=== PATIENT | male | born 1930 | race Caucasian/White ===

== ENCOUNTER 2017-04-24 10:39 | Inpatient (IN) | payer OTHER ==
[~2017-04-24] VITALS: Ht 172.7 cm; Wt 82.2 kg
[2017-04-24 14:46] LABS: BASOPHIL % 0.3 % (0-2)
[2017-04-24 14:47] LABS: PLATELET COUNT 82 x10^3mcL (130-400); RED CELL DISTRIBUTION WIDTH 15.1 % (11.5-14.5)
[2017-04-24 15:02] LABS: CALCIUM 8.4 mg/dL (8.5-10.1); CARBON DIOXIDE 23.3 mmol/L (21-32); CHLORIDE SERUM 101 mmol/L (98-107); CREATININE SERUM 0.9 mg/dL (0.7-1.3); GLUCOSE SERUM 103 mg/dL (74-106); POTASSIUM SERUM 3.8 mmol/L (3.5-5.1); SODIUM SERUM 132 mmol/L (136-145)
[2017-04-24 15:08] LABS: ALKALINE PHOSPHATASE 66 U/L (46-116); ALT/SGPT 33 U/L (16-63); AST/SGOT 37 U/L (15-37); BILIRUBIN TOTAL 1.05 mg/dL (0.20-1.00); TOTAL PROTEIN, SERUM 7.2 g/dL (6.4-8.2)
[2017-04-24 15:10] LABS: ALBUMIN 3.3 g/dL (3.4-5.0)
[2017-04-24] MEDS ORDERED: VERAMYST27.5 MCG/1 (16:44)
[2017-04-24] MEDS ORDERED: ALBUTEROL0.63 MG/3 (16:44)
[2017-04-24 17:33] VITALS: BP 138/77
[2017-04-24 18:02] LABS: AMYLASE 46 U/L (25-115); LIPASE 107 IU/L (73-393)
[2017-04-24 18:05] VITALS: BP 137/67
[2017-04-24 18:10] LABS: FREE T4 1.2 ng/dL (0.76-1.46); FREE THYROXINE INDEX 2.1 ug/dL (1.4-4.5); T4(THYROXINE) 5.7 ug/dL (4.7-13.3)
[2017-04-24 18:16] LABS: CHOLESTEROL/HDL RATIO 1.5
[2017-04-24 18:17] VITALS: BP 137/67
[2017-04-24 18:58] LABS: UA SPECIFIC GRAVITY 1.025 (1.005-1.035); microscopic required? YES; urine erythrocyte TRACE (NEGATIVE)
[2017-04-24 19:49] LABS: T3 TOTAL 0.7 ng/mL
[2017-04-24 21:44] VITALS: BP 127/61
[2017-04-25 05:43] VITALS: BP 142/60
[2017-04-25 07:02] LABS: BASOPHIL % 0 % (0-2); PLATELET COUNT 86 x10^3mcL (130-400)
[2017-04-25 07:13] LABS: BILIRUBIN TOTAL 0.49 mg/dL (0.20-1.00); CALCIUM 8.2 mg/dL (8.5-10.1); CARBON DIOXIDE 22.3 mmol/L (21-32); CHLORIDE SERUM 104 mmol/L (98-107); CREATININE SERUM 0.8 mg/dL (0.7-1.3); GLUCOSE SERUM 159 mg/dL (74-106); MAGNESIUM 2.1 mg/dL (1.8-2.4); PHOSPHOROUS 2.2 mg/dL (2.5-4.9); POTASSIUM SERUM 3.9 mmol/L (3.5-5.1); SODIUM SERUM 134 mmol/L (136-145)
[2017-04-25 09:58] VITALS: BP 124/70
[2017-04-25 12:39] VITALS: BP 145/73
[2017-04-25 17:09] VITALS: BP 144/63
[2017-04-25 20:49] VITALS: BP 132/58
[2017-04-26 06:02] VITALS: BP 148/74
[2017-04-26 07:20] LABS: CARBON DIOXIDE 22.7 mmol/L (21-32); CHLORIDE SERUM 104 mmol/L (98-107); CREATININE SERUM 0.8 mg/dL (0.7-1.3); GLUCOSE SERUM 159 mg/dL (74-106); MAGNESIUM 2.2 mg/dL (1.8-2.4); PHOSPHOROUS 2.4 mg/dL (2.5-4.9); POTASSIUM SERUM 3.7 mmol/L (3.5-5.1); SODIUM SERUM 136 mmol/L (136-145)
[2017-04-26 07:22] LABS: BASOPHIL % 0.9 % (0-2); RED CELL DISTRIBUTION WIDTH 14.2 % (11.5-14.5)
[2017-04-26 07:28] LABS: PLATELET COUNT 94 x10^3mcL (130-400)
[2017-04-26 09:04] VITALS: BP 115/67
[2017-04-26 14:10] VITALS: BP 135/66
[2017-04-26 16:36] VITALS: BP 147/84
[2017-04-26 21:47] VITALS: BP 133/68
[2017-04-27 06:15] VITALS: BP 171/76
[2017-04-27 07:25] LABS: CALCIUM 8.1 mg/dL (8.5-10.1); CARBON DIOXIDE 24.4 mmol/L (21-32); CHLORIDE SERUM 104 mmol/L (98-107); CREATININE SERUM 0.8 mg/dL (0.7-1.3); GLUCOSE SERUM 143 mg/dL (74-106); MAGNESIUM 2.2 mg/dL (1.8-2.4); PHOSPHOROUS 2.6 mg/dL (2.5-4.9); POTASSIUM SERUM 3.9 mmol/L (3.5-5.1); SODIUM SERUM 139 mmol/L (136-145)
[2017-04-27 07:34] LABS: BASOPHIL % 0.6 % (0-2); RED CELL DISTRIBUTION WIDTH 14.1 % (11.5-14.5)
[2017-04-27 07:36] LABS: PLATELET COUNT 98 x10^3mcL (130-400)
[2017-04-27 08:00] VITALS: BP 120/61
[2017-04-27 14:05] VITALS: BP 155/89
[2017-04-27 17:50] VITALS: BP 118/63; BP 133/76
[2017-04-27 20:54] VITALS: BP 122/74
[2017-04-28 05:24] VITALS: BP 141/69
[2017-04-28 06:51] LABS: BASOPHIL % 0.2 % (0-2)
[2017-04-28 07:20] LABS: CALCIUM 8.1 mg/dL (8.5-10.1); CARBON DIOXIDE 25.4 mmol/L (21-32); CHLORIDE SERUM 103 mmol/L (98-107); CREATININE SERUM 0.9 mg/dL (0.7-1.3); GLUCOSE SERUM 129 mg/dL (74-106); MAGNESIUM 2.1 mg/dL (1.8-2.4); PHOSPHOROUS 2.9 mg/dL (2.5-4.9); POTASSIUM SERUM 3.8 mmol/L (3.5-5.1); SODIUM SERUM 138 mmol/L (136-145)
[2017-04-28 07:57] LABS: PLATELET COUNT 99 x10^3mcL (130-400); RED CELL DISTRIBUTION WIDTH 14.9 % (11.5-14.5)
[2017-04-28 09:55] VITALS: BP 148/66
[2017-04-28 18:17] VITALS: BP 128/78
[2017-04-28 22:24] VITALS: BP 128/63
[2017-04-29 05:27] VITALS: BP 165/72
[2017-04-29 06:22] LABS: CALCIUM 8.3 mg/dL (8.5-10.1); CARBON DIOXIDE 27.9 mmol/L (21-32); CHLORIDE SERUM 104 mmol/L (98-107); CREATININE SERUM 0.8 mg/dL (0.7-1.3); GLUCOSE SERUM 136 mg/dL (74-106); MAGNESIUM 2.3 mg/dL (1.8-2.4); PHOSPHOROUS 2.9 mg/dL (2.5-4.9); POTASSIUM SERUM 3.7 mmol/L (3.5-5.1); SODIUM SERUM 139 mmol/L (136-145)
[2017-04-29 07:43] LABS: BASOPHIL % 0.5 % (0-2)
[2017-04-29 07:45] LABS: PLATELET COUNT 92 x10^3mcL (130-400); RED CELL DISTRIBUTION WIDTH 14.9 % (11.5-14.5)
[2017-04-29 09:26] VITALS: BP 118/56
[2017-04-29] MEDS ORDERED: ALBUTEROL0.63 MG/3 INH (11:05)
[2017-04-29 11:10] VITALS: BP 118/56
[2017-04-29] MEDS ORDERED: LEVAQUIN750 MG PO (11:10)
[2017-04-29] MEDS ORDERED: BD LACTINEX1.4 MG PO (11:11)
[2017-04-29] MEDS ORDERED: CLINDAMYCIN HC300 MG PO (11:11)
[2017-04-29] MEDS ORDERED: MEDDP PO (11:12)
[2017-04-29] MEDS ORDERED: ATIVAN1 MG PO (14:35)
[2017-04-29] MEDS ORDERED: MULTIVITAMIN1 SGL PO (14:41)
[2017-04-29] MEDS ORDERED: PULMICORT0.5 MG/2 M IH (14:50)
[2017-04-29] MEDS ORDERED: THI100 PO (14:50)
[2017-04-29] MEDS ORDERED: FOL1 PO (14:50)
[2017-04-29] MEDS ORDERED: COUGH100 MG/5 M PO (14:50)
== END 2017-04-29 16:16 | disposition home or self-care (01) | DRG 177 ==
LOC: ED 10:39 → DU 16:08 → MU 04-28 08:35
PROVIDERS: Emergency Medicine; Family Medicine
DX: J69.0 Pneumonitis due to inhalation of food and vomit (principal); J96.00 Acute respiratory failure, unspecified whether with hypoxia or hypercapnia; N17.0 Acute kidney failure with tubular necrosis; J44.1 Chronic obstructive pulmonary disease with (acute) exacerbation; E44.0 Moderate protein-calorie malnutrition; E87.1 Hypo-osmolality and hyponatremia; F10.20 Alcohol dependence, uncomplicated; J09.X2 Influenza due to identified novel influenza A virus with other respiratory manifestations; K70.30 Alcoholic cirrhosis of liver without ascites; D69.59 Other secondary thrombocytopenia; Z66 Do not resuscitate; Z96.652 Presence of left artificial knee joint; Z68.27 Body mass index [BMI] 27.0-27.9, adult; Z87.891 Personal history of nicotine dependence; Z91.19 Patient's noncompliance with other medical treatment and regimen
CPT/HCPCS: 36600; 83880; 84439; 87804; 90658; 94150; G0480; J1956; J2920; J2930; J3490; J7030; J7613; J7620; J7626; J7644; Q0092

== ENCOUNTER 2017-09-05 12:04 | Emergency (ER) | payer OTHER ==
[~2017-09-05] VITALS: Ht 172.7 cm; Wt 78.6 kg
[~2017-09-05 12:04] MED LIST: ALBUTEROL0.63 MG/3; ALBUTEROL0.63 MG/3 INH; ATIVAN1 MG PO; BD LACTINEX1.4 MG PO; CLINDAMYCIN HC300 MG PO; COUGH100 MG/5 M PO; FOL1 PO; LEVAQUIN750 MG PO; MEDDP PO; MULTIVITAMIN1 SGL PO; PULMICORT0.5 MG/2 M IH; THI100 PO; VERAMYST27.5 MCG/1
[2017-09-05 12:07] VITALS: Ht 172.7 cm; Wt 78.6 kg
[2017-09-05 15:45] VITALS: BP 155/71
== END 2017-09-05 15:45 | disposition home or self-care (01) ==
LOC: ED 12:04
DX: S81.801D Unspecified open wound, right lower leg, subsequent encounter (principal); W45.8XXD Other foreign body or object entering through skin, subsequent encounter; J45.909 Unspecified asthma, uncomplicated; J44.9 Chronic obstructive pulmonary disease, unspecified
CPT/HCPCS: 90715; Q0092